=== PATIENT | male | born 1980 | race Caucasian/White ===

== ENCOUNTER 2021-08-22 21:17 | Emergency (ER) | payer BC, OTHER ==
[~2021-08-22] VITALS: Ht 180.3 cm; Wt 104.5 kg
[2021-08-22 21:30] VITALS: BP 167/108
--- NOTE | 2021-08-22 21:38 | ED Upper Extremity ---
General Stated Complaint: FISHING LURE IN LEFT THUMB Source: patient Exam Limitations: no limitations History of Present Illness Date Seen by Provider: Aug 22, 2021 Time Seen by Provider: 21:29 Initial Comments Patient is a 41-year-old male who presents ED with a lure stuck in his left thumb. This occurred 1 hour ago while fishing. One of the ramírez is stuck in his left thumb. Attempted to remove but was unsuccessful. Normal active range of motion. Patient is not up-to-date on his tetanus Allergies and Home Medications Allergies Coded Allergies: No Known Drug Allergies (Unverified , 08/22/21) Patient Home Medication List Home Medication List Reviewed: Yes Review of Systems Constitutional: No chills, No diaphoresis EENTM: No hearing loss, No ear pain, No blurred vision, No mouth pain, No mouth swelling Respiratory: No cough, No dyspnea on exertion Cardiovascular: No chest pain Gastrointestinal: No abdominal pain, No diarrhea, No nausea, No vomiting Genitourinary: No decreased output, No discharge Musculoskeletal: No back pain; joint pain Skin: change in color, other (Foreign body in left thumb) All Other Systems Reviewed Negative Unless Noted: Yes Physical Exam Vital Signs Vital Signs - First Documented 08/22/21 21:30 Temp 36.8 Pulse 83 Resp 16 B/P (MAP) 167/108 (127) Capillary Refill : Height, Weight, BMI Height: '" Weight: lbs. oz. kg; BMI Method: General Appearance: WD/WN, no apparent distress HEENT: PERRL/EOMI, normal ENT inspection, TMs normal, pharynx normal Neck: non-tender, full range of motion, supple, normal inspection Cardiovascular: regular rate, rhythm, no edema, no gallop, no JVD Respiratory: chest non-tender, lungs clear, normal breath sounds, no respiratory distress, no accessory muscle use Gastrointestinal: normal bowel sounds, non tender, soft, no organomegaly Hand: normal ROM (Left thumb), Left ([place] in left thumb with ramírez) Skin: normal color, warm/dry Progress/Results/Core Measures Results/Orders My Orders Orders - LISANDRA BRIGGS Dipht,Pertuss(Acell),Tet Adult (Boostrix (08/22/21 21:45) Vital Signs/I&O 08/22/21 21:30 Temp 36.8 Pulse 83 Resp 16 B/P (MAP) 167/108 (127) Departure Communication (PCP) Successful removal of foreign body left thumb. Injected 1 mL of 1% lidocaine around the ramírez. 11 inch blade was used to cut out the ramírez. Patient tolerated procedure well. Updated tetanus. Bleeding controlled. Normal active range of motion of the thumb. Neosporin topical until puncture wound is closed and healed. Return precaution were discussed with patient Impression Primary Impression: Foreign body in hand Disposition: 01 HOME, SELF-CARE Condition: Stable Departure-Patient Inst. Decision time for Depature: 21:41 Referrals: [facility] [place] PHYSICIAN (PCP) Primary Care Physician Patient Instructions: Foreign Body in Skin (DC) LISANDRA BRIGGS Aug 22, 2021 21:38
[2021-08-22] MEDS ORDERED: TETANUS,DIPTH,PERTUSS P/F (BOOSTRIX) 0.5 ML VIAL IM ONE (21:45)
== END 2021-08-22 22:00 | disposition home or self-care (01) ==
LOC: ER 21:20
DX: S60.352A Superficial foreign body of left thumb, initial encounter (principal); Z23 Encounter for immunization; Z28.310 Unvaccinated for COVID-19; W45.8XXA Other foreign body or object entering through skin, initial encounter
CPT/HCPCS: 90715; 99284